=== PATIENT | female | born 1965 | race Caucasian/White ===

== ENCOUNTER 2023-09-23 12:27 | Outpatient (CLI) | payer OTHER, SELFPAY ==
--- OUTSIDE RECORDS SUMMARY | 2023-09-28 03:10 | XMS_ITS | Data Portability ---
Author Name Unknown Address [address] [place] [id number] Phone [phone] Organization [facility] [place], [id number] Address [address] [place] [phone] Assessment No assessment recorded. Plan of Treatment Reminders Order Date Submit Date Provider Last Modified By Organization Details Last Modified Time Details Appointments None recorded. Lab Pap test, slide(s), cervical [address], [address], [place], [address], 08:18:53 Referral None recorded. Procedures None recorded. Surgeries None recorded. Imaging None recorded. Medication Orders phentermine 37.5 mg tablet 2021 [id number], [address] [place], [address], 17:53:43 triamcinolo ne acetonide 0.1 % topical cream 2021 [id number], [address] [place], [address], 17:53:40 terconazole 0.8 % vaginal cream 2021 [id number], [address] [place], [address], 17:53:41 Patient TargetsNo targets recorded. Patient Instructions Encounter Date Encounter Id Patient Instructions Last Modified By Organization Details Last Modified Time 06/04/2022 [id number] handling fee* Not available 1 17:10:17 RTC in 1 year fo r annual exam. Sent scripts to treat rash on inner thighs. Will start Phentermine for weight. Pt will also discuss GLP-1 Meds with her Vending Route Servicer. Sent PAP, HPV. Will call pt with results. Pt had labs in October 2021 with PCP that were all WNL's. Last mammogram was normal in Aug 2021. Continue routine screening mammograms. She has not had a colonoscopy. Advised to schedule a routine screening colonoscopy. Advised to always wear seatbelt. Recommended monthly breast checks. Pt's paternal aunt had breast cancer in her 60's. Denies FmHx of ovarian, uterine, cervical or colon cancers. She does have a family history of Alzheimer's in her dad's family. All questions answered. [email or web address] Not available 06/04/2022 17:53:12 Reason for Referral None Reported. Results Created Date Observation Date Name Description Value Unit Range Abnormal Flag LastModifiedBy Organization Detail LastModifiedTime 06/04/20 22 06/04/2022 HPV HIGH RISK TYPES DNA CERVI DENISE other HR HPV negati ve negati ve Not Available [address], [place], [address], 06/10/2022 08:18:23 06/04/20 22 06/04/2022 HPV HIGH RISK TYPES DNA CERVI DENISE HPV16 DNA negati ve negati ve Not Available [address], [place], [address], 06/10/2022 08:18:23 06/04/20 22 06/04/2022 HPV HIGH RISK TYPES DNA CERVI DENISE HPV18 DNA negati ve negati ve Not Available [address], [place], [address], 06/10/2022 08:18:23 06/04/20 22 06/04/2022 HPV HIGH RISK TYPES DNA CERVI DENISE final diagnosis see note below Not Available [address], [place], [address], 06/10/2022 08:18:23 06/04/20 22 06/04/2022 GYNEC OLOGI C CYTOL OGY (PAP SMEAR ) gynecologic cytology see result s below Not Available [address], [place], [address], 06/10/2022 08:18:53 08/08/20 20 08/01/2020 MAMMO , scree madeline, bilat eral No observ ation record ed. [email or web address] Not Available 08/09/2020 12:21:11 Result Notes None recorded. Problems Name Status Onset Date Resolution Date Notes Provider Name and Address Organization Details Recorded Time Kidney stone Active Beti Mellissa(TERM) null, [place] [facility] [place] 06/04/2022 14:46:17 Disorder of thyroid gland Active Beti Mellissa(TERM) [place], [place] [facility] [place] [employer] 06/04/2022 14:46:45 Problem Notes None recorded. Procedures Surgical History Date Name Laterality Status Provider Name and Address Organization Details Recorded Time 2 Date of Last Mammogram completed Beti Mellissa(TERM) [place], [place] [facility] [place] [facility] 06/04/2022 14:47:48 9 Date of Last Pap Smear completed Beti Mellissa(TERM) [place], [place] [facility] [facility] 06/01/2022 16:22:12 ligation of bilateral fallopian tubes completed Not Available [facility] 04/04/2020 05:09:44 hernia repair completed Not Available [facility] 04/04/2020 05:09:45 Imaging Results Imaging Date Name Status LastModified by Organiz ation Details LastModified Time 08/01/2020 MAMMO, screening, bilateral completed [email or web address] Information not available 08/09/2020 12:21:11 Procedure Notes None recorded. Medical Equipment None Reported. Allergies Allergen ID Allergen Name Allergen Category Reaction Reaction Severity Criticality Documentation Date Start Date Code Code System Note Provider Name and Address Organization Details Recorded Time 79228 Medicinal product containin g penicilli n and acting as antibacte rial agent (product) medicatio n Not available Not available Not available 04/04/2020 28704 05 SNOMED Not Available [facility] 0 05:13:27 Medications Name Sig Start Date Stop Date Status Note LastModified by Organization Details LastModified Time terconazole 0.8 % vaginal cream Apply topically to affected area twice daily for 3 days or until rash resolves. active Not Available Not Available No t Available phentermine 37.5 mg tablet Take 1 tablet by oral route once daily 1-2 hours before or after breakfast . active Not Available Not Available No t Available triamcinolo ne acetonide 0.1 % topical cream APPLY A THIN LAYER TO THE AFFECTED AREA(S) BY TOPICAL ROUTE 2 TIMES PER DAY active Not Available Not Available No t Available tamsulosin 0.4 mg capsule take 1 capsule by mouth daily 06/04 completed Not Available Not Available Not Available Multi Vitamin active Not Available Not Available Not Available Flowflex COVID-19 Antigen Home Test kit use to test for COVID infection 06/04 completed Not Available Not Available Not Available Vitals Date Recorded Body weight Body mass index (BMI) Body height Heart rate Systolic blood pressure Diastolic blood pressure Provider Name and Address Organization Details Last Updated DateTime 2 40081.2 6 g 30.8 kg/m2 170.18 cm 82 /min 150 mm[Hg] 94 mm[Hg] Beti Parkinsonua(TERM ) [facility], [place] [facility] [place] 2 14:52:01 Date Recorded Body weight Body height Body mass index (BMI) Systolic blood pressure Diastolic blood pressure Provider Name and Address Organization Details Last Updated DateTime 07/18/2019 39530.77 319 g 172.8216 cm 28.43 kg/m2 150 mm[Hg] 92 mm[Hg] Not Available [facility] 0 06:34:52 Date Recorded Body mass index (BMI) Body weight Body height Systolic blood pressure Diastolic blood pressure Provider Name and Address Organization Details Last Updated DateTime 08/28/2011 29.19 kg/m2 38195.73 504 g 172.8216 cm 130 mm[Hg] 82 mm[Hg] Not Available [facility] 0 06:34:52 Social History Question Answer Notes LastModified by Organization Details LastModified Time Tobacco Smoking Status Former Smoker Tobacco *Status: Former Not Available [facility] 04/08/2020 11:34:45 Do You Have An Advance Directive? No Does Not Have A Health Directive Information not available 04/08/2020 What Is Your Level Of Alcohol Consumption? Occasional Wine Information not available 06/04/2022 Is Blood Transfusion Acceptable In An Emergency? Yes Information not available 06/01/2022 What Is Your Level Of Caffeine Consumption? None Information not available 06/04/2022 Are You Currently Employed? Yes Information not available 06/01/2022 What Type Of Diet Are You Following? 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 No Information not available 06/01/2022 Marital Status Informati on not available 04/08/2020 What Was The Date Of Your Most Recent Tobacco Screening? 06/04/2022 Information not available 06/01/2022 Performs Monthly Self-breast Exam? No Does Not Perform Monthly Breast Exams Information not available 04/08/2020 What Is Your Relationship Status? Information not available 06/01/2022 Are You Sexually Active? Yes Sexually Active Information not available 04/08/2020 Are You Currently In School? No Information not available 06/01/2022 Do You Or Have You Ever Used Any Other Forms Of Tobacco Or Nicotine? No Information not available 06/01/2022 Sex: Female Functional Status Question Answer Note LastModified by Organization D etails LastModified Time What is your exercise level? Moderate Information not available 06/04/2022 Mental Status None recorded. Family History Relationship Description Onset Age of this Age Resolved Age Notes Mother Malignant tumor of thyroid gland Father Carcinoma of prostate Father Alzheimer's disease Paternal Aunt Malignant tumor of breast Medical History No medical history recorded. Gynecological History Statement/Question Response History of Endometriosis N History of Abnormal PAP N History of Recurrent Ovarian Cysts N HPV Test Negative Date of Last Mammogram 08/30/2021 Date of LMP Menstrual Cycle Length (days) 30 Date of Last Diabetes Screening 08/30/19 22 History of Infertility N Date of last bone density Sexually Active Y Age at Menarche: 17 Date of Last Colonoscopy History of Sexually Transmitted Infectio n N HPV Vaccination Not Applicable Current Control Method Menopause History of Gestational Diabetes N History of Fibroids N Date of Last Pap Smear 07/18/2019 Date of Last Cholesterol Screening 08/30 Obstetrics History GPAL:G 3 P 3 0 0 3 Type Value Multiple Births 0 Full Term 3 Induced 0 Spontaneous 0 Premature 0 Living 3 Ectopics 0 Total 3 Immunizations Vaccine Type Date Status Provider Name and Address Organization Details Recorded Time COVID-19, mRNA, LNP-S, PF, 100 mcg/0.5mL dose or 50 mcg/0.25mL dose 08/30/2020 completed Beti Malloy(TERM) null, [place] - [facility] [place] 06/04/2022 14:45:57 Past Encounters Encounter ID Performer Location Encounter Start Date Encounter Closed Date Diagnosis/Indication [id number] ADAN TORRES PA-C [id number] [facility] [address] [facility] [place] [phone] 06/04/2022 14:28:40 06/05/2022 11:01:45 Gynecologic examination Obesity Localized eruption of skin Health Concerns Section Related Observation LastModified by Organization Detai ls LastModified Time None Recorded Concern Status LastModified by Organization Details LastModified Time None Recorded Advance Directives Directive N: Does Not have a Health Di rective Payers Encounter Date Sequence Insurance Name Policy Number Policy Delarosa Covered Member ID Delarosa Member ID Guarantor Name 06/04/2022 1 [facility] Alexis King [id number] Charo King Notes Date Note Type Note Provider Name and Address Organization Details Recorded Time 06/04/2022 text/html HPI Notes: Zehraua chloé Postmenopausal ([facility]) Reported by patient. Patient Relationship To Practice: established patient Current Medical History: no active medical problems; no recent surgeries or hospitalizations; Hx of kidney stone in 2019. 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 She had her parathyroid removed in October 2020. Her calcium levels have since returned to normal. Relevant Family History: family history of breast cancer; no family history of ovarian cancer; no family history of uterine cancer; no family history of colon cancer; no family history of blood clots/DVT Menopausal Symptoms: not present; feels she is coping well; Some irritability and insomnia but overall feels she is coping well HRT: not currently on HRT Vaginal Bleeding: no Sexually Active: Yes: spouse STI Screen: declines Health/Prevention: Exercise: yes; Breast Self Exam: yes; Seat Belt Use: yes; Tobacco Use: no; Safe at home: yes Mammogram: up-to-date; August 2021 - [place] Pap Smear +/- HPV Cotesting: due; 07/18/2019 [place] Thyroid/Lipid Screening: up-to-date; 2021 Colonoscopy: due Bone Density Study: not applicable Patient has: Primary Care Physician: yes 56 YO Pt presents to clinic today for her annual exam. Her LMP was 2 years ago. She is very concerned about weight gain since reaching menopause. She has gained 15 lbs in the last 6 months. ADAN TORRES PA-C [id number] [facility],[address], [place], [phone], [place] [facility] [employer] 06/04/2022 17:56:09 OBGyn Episode Ob Episode Information Episode Created Date Number of Fetuses Patient Bloodtype Patient rh Status Prepregnancy Weight lbs Domestic Partner Domestic Partner Phone Father Name Molder Bench Status 06/01/20 22 1 CLOSED Fetus Data First Name Last Name Admitted to NICU Weight (g) Sex Living Outcome Pediatric Complications Fetus ID Race Codes Race Delivery Type M Full Term [id number] Tommy Calculation Initial Tommy Date Initial Exam Date Initial Exam Provider Initial Ultrasound Date Last Menstrual Period Date Ultra Sound Weeks Gestation 0 Eighteen To Twenty Week Tommy Update Ultra Sound Date Fundal Height At Umbil Quickening Date Ultra Sound Latest Weeks Gestation Final Tommy Confirmed By Final Tommy Confirmed Date Final Tommy Date Ultra Sound Latest Days Gestation 0 0 Menstrual History Last Menstrual Date Menses Monthly On Bcp Conception Prior Menses Frequency Hcg Plus Date Menarche Onset Age Delivery Information Delivery Date Delivery Type Labor Anesthesia Weeks Gestation Incision Type Labor Labor Length Hrs Delivered By Post Complications Tubal Sterilization Discharge Date Comments 1 Discharge Information Feeding Method Contraceptive Method Maternal HG B and HCT Levels Ob Episode Information Episode Created Date Number of Fetuses Patient Bloodtype Patient rh Status Prepregnancy Weight lbs Domestic Partner Domestic Partner Phone Father Name Molder Bench Status 06/01/20 22 1 CLOSED Fetus Data First Name Last Name Admitted to NICU Weight (g) Sex Living Outcome Pediatric Complications Fetus ID Race Codes Race Delivery Type M Full Term [id number] Tommy Calculation Initial Tommy Date Initial Exam Date Initial Exam Provider Initial Ultrasound Date Last Menstrual Period Date Ultra Sound Weeks Gestation 0 Eighteen To Twenty Week Tommy Update Ultra Sound Date Fundal Height At Umbil Quickening Date Ultra Sound Latest Weeks Gestation Final Tommy Confirmed By Final Tommy Confirmed Date Final Tommy Date Ultra Sound Latest Days Gestation 0 0 Menstrual History Last Menstrual Date Menses Monthly On Bcp Conception Prior Menses Frequency Hcg Plus Date Menarche Onset Age Delivery Information Delivery Date Delivery Type Labor Anesthesia Weeks Gestation Incision Type Labor Labor Length Hrs Delivered By Post Complications Tubal Sterilization Discharge Date Comments 8 Discharge Information Feeding Method Contraceptive Method Maternal HG B and HCT Levels Ob Episode Information Episode Created Date Number of Fetuses Patient Bloodtype Patient rh Status Prepregnancy Weight lbs Domestic Partner Domestic Partner Phone Father Name Molder Bench Status 06/01/20 22 1 CLOSED Fetus Data First Name Last Name Admitted to NICU Weight (g) Sex Living Outcome Pediatric Complications Fetus ID Race Codes Race Delivery Type F Full Term [id number] Tommy Calculation Initial Tommy Date Initial Exam Date Initial Exam Provider Initial Ultrasound Date Last Menstrual Period Date Ultra Sound Weeks Gestation 0 Eighteen To Twenty Week Tommy Update Ultra Sound Date Fundal Height At Umbil Quickening Date Ultra Sound Latest Weeks Gestation Final Tommy Confirmed By Final Tommy Confirmed Date Final Tommy Date Ultra Sound Latest Days Gestation 0 0 Menstrual History Last Menstrual Date Menses Monthly On Bcp Conception Prior Menses Frequency Hcg Plus Date Menarche Onset Age Delivery Information Delivery Date Delivery Type Labor Anesthesia Weeks Gestation Incision Type Labor Labor Length Hrs Delivered By Post Complications Tubal Sterilization Discharge Date Comments 5 Discharge Information Feeding Method Contraceptive Method Maternal HG B and HCT Levels
--- OUTSIDE RECORDS SUMMARY | 2023-09-28 03:10 | XMS_ITS | Data Portability ---
Author Name Unknown Address [address] [place] [address] Phone [phone] Organization [facility], [facility] Address [address] [place] [address] Care Team Providers Care Mud Trucker Name Role Phone [facility] Primary Care Provider [phone] Assessment Encounter Date Assessment Date Assessment LastModified by Organization Details LastModified Time 04/17/2020 04/17/2020 A TOTAL OF 20-25 MINUTES SPENT ON THIS video TELEMEDICINE VISIT WITH REVIEW OF CHART, IMAGING, LABORATORY, AND GREATER THAN 50% OF TIME SPENT IN DIRECT CONVERSATION WITH PATIENT. [email or web address] Not available 04/17/2020 12:42:55 06/07/2020 06/07/2020 54 Y/O FEMALE, SEEN FOR RT FLANK PAIN, IRRITATIVE VOIDING SX.S RECENT LEFT ESWL WITH DR ALONZO. KUB - LEFT NEG. 2 -3MM RT DISTAL CALCIFICATIONS. PAIN IMPROVED. PLAN - INCREASED FLUIDS, STRAIN URINE, FLOMAX. FOLLOWUP WITH DR ALONZO 1-2 WKS Not available 06/07/2020 12:08:00 Plan of Treatment Reminders Order Date Submit Date Provider Last Modified By Organization Details Last Modified Time Details Appointments CT SCAN 30 2023 11:00A M CT Not available Not available Not available Lab urinal ysis, dipsti ck 2023 024 [email or web address] [facility], [address], [place], [address], 09/27/2023 13:55:23 urinal ysis, dipsti ck 2020 KENZIE Not available 08/08/2021 14:31:57 urinal ysis, dipsti ck 2019 ssamb Not available 06/07/2020 10:54:43 PTH (parat hyroid hormon e), intact , serum or plasma 2019 [facility], [address] [place], [address], 04/29/2020 09:41:35 BMP + ionize d calciu m, serum or plasma 2019 [facility], [address] [place], [address], 04/19/2020 06:13:08 Referral None record ed. Procedures None record ed. Surgeries extra corpor eal shockw ave lithot ripsy (SURG) 2019 [facility], [address] , [place], [address], 05/27/2020 11:53:[address], abdome n + pelvis , w/o contra st 2023 024 [email or web address] [facility] , [address] [place], [address], 09/27/2023 14:57:59 CT, abdome n + pelvis , w/o contra st 2020 [email or web address] Not available 08/08/2021 09:14:38 CT, abdome n + pelvis , w/o contra st 2019 KENZIE Not available 04/25/2020 13:17:06 XR, kidney + ureter + bladde r 2019 KENZIE Not available 04/25/2020 13:09:00 Medication Orders tamsul osin 0.4 mg capsul e [address] [id number], [address] [place], [address], 06/07/2020 12:03:51 Patient TargetsNo targets recorded. Patient Instructions Encounter Date Encounter Id Patient Instructions Last Modified By Organization Details Last Modified Time 07/01/2020 [id number] Patient status post ESWL and has passed the stone fragments. She is going to be seen in endocrinology in follow-up for PTH elevation [email or web address] Not available 07/01/2020 14:40:31 06/07/2020 [id number] STONE PREVENTION Not availabl e 06/07/2020 12:08:08 Reason for Referral None Reported. Results Created Date Observation Date Name Description Value Unit Range Abnormal Flag LastModifiedBy Organization Detail LastModifiedTime 06/07/2020 urina lysis , dipst ick Color-Status Yellow Not Available [facility] [address], [place], [address], 06/07/2020 10:54:27 06/07/2020 urina lysis , dipst ick Clarity-Stat us Clear Not Available [facility] [address], [place], [address], 06/07/2020 10:54:27 06/07/2020 urina lysis , dipst ick Blood-Status Large Not Available [facility] [address], [place], [address], 06/07/2020 10:54:27 08/08/20 21 08/08/2021 urina lysis , dipst ick Blood-Status Trace Not Available [facility] [address], [place], [address], 08/07/2021 15:38:18 09/27/19 24 09/27/2023 urina lysis , dipst ick Color-Status Yellow Not Available [facility] [address], [place], [address], 09/27/2023 13:54:29 09/27/19 24 09/27/2023 urina lysis , dipst ick Clarity-Stat us Clear Not Available [facility] [address], [place], [address], 09/27/2023 13:54:29 09/27/19 24 09/27/2023 urina lysis , dipst ick Glucose-Stat us Negati ve Not Available [facility] [address], [place], [address], 09/27/2023 13:54:29 09/27/19 24 09/27/2023 urina lysis , dipst ick Bilirubin-St atus Negati ve Not Available [facility] [address], [place], [address], 09/27/2023 13:54:29 09/27/19 24 09/27/2023 urina lysis , dipst ick Ketones-Stat us Negati ve Not Available [facility] [address], [place], [address], 09/27/2023 13:54:29 09/27/19 24 09/27/2023 urina lysis , dipst ick Sp Miami-Stat us 1.025 Not Available [facility] [address], [place], [address], 09/27/2023 13:54:29 09/27/19 24 09/27/2023 urina lysis , dipst ick pH-Status 6.0 Not Available [facility] [address], [place], [address], 09/27/2023 13:54:29 09/27/19 24 09/27/2023 urina lysis , dipst ick Urobilinogen -Status 0.2 Not Available [facility] [address], [place], [address], 09/27/2023 13:54:29 09/27/19 24 09/27/2023 urina lysis , dipst ick Nitrates-Sta tus negati ve Not Available [facility] [address], [place], [address], 09/27/2023 13:54:29 09/27/19 24 09/27/2023 urina lysis , dipst ick Blood-Status Large Not Available [facility] [address], [place], [address], 09/27/2023 13:54:29 09/27/19 24 09/27/2023 urina lysis , dipst ick Leuko-Status Negati ve Not Available [facility] [address], [place], [address], 09/27/2023 13:54:29 09/27/19 24 09/27/2023 urina lysis , dipst ick Specimen Type Voided Not Available [facility] [address], [place], [address], 09/27/2023 13:54:29 04/25/20 20 04/24/2020 XR, kidne y + urete r + bladd er No observ ation record ed. [email or web address] Not Available 04/28/2020 15:52:38 04/25/20 20 04/24/2020 CT, abdom en + pelvi s, w/o contr ast No observ ation record ed. [email or web address] Not Available 04/28/2020 15:52:39 06/12/20 20 06/07/2020 XR, kidne y + urete r + bladd er No observ ation record ed. KENZIE [facility] [address], [place], [address], 06/13/2020 08:25:40 08/15/20 21 08/14/2021 CT, abdom en + pelvi s, w/o contr ast No observ ation record ed. [email or web address] [facility] [address], [place], [address], 08/18/2021 11:05:05 Result Notes None recorded. Procedures Surgical History Date Name Laterality Status Provider Name and Address Organization Details Recorded Time 05/17/20 20 EXTRA CORPOREAL SHOCKWAVE LITHOTRIPSY (SURG) completed Jensen Alonzo MD [address] [facility],[address], [place], [address], [facility] 05/27/2020 13:46:45 05/17/20 20 EXTRA CORPOREAL SHOCKWAVE LITHOTRIPSY (SURG) completed Not Available [facility] 05/28/2020 14:22:40 Imaging Results Imaging Date Name Status LastModified by Organiz ation Details LastModified Time 04/24/2020 XR, kidney + ureter + bladder completed Information not available 04/28/2020 15:52:38 04/24/2020 CT, abdomen + pelvis, w/o contrast completed Information not available 04/28/2020 15:52:39 06/07/2020 XR, kidney + ureter + bladder completed KENZIE [facility] [address], [place], [address], 06/13/2020 08:25:40 08/14/2021 CT, abdomen + pelvis, w/o contrast completed [email or web address] [facility] [address], [place], [address], 08/18/2021 11:05:05 Procedure Notes None recorded. Medical Equipment None Reported. Allergies Allergen ID Allergen Name Allergen Category Reaction Reaction Severity Criticality Documentation Date Start Date Code Code System Note Provider Name and Address Organization Details Recorded Time 190117 Medicinal product containin g penicilli n and acting as antibacte rial agent (product) medicatio n hives Not available Not available 04/17/2020 40351 05 SNOMED Edgardo calderon [facility] 0 10:48:15 Medications Name Sig Start Date Stop Date Status Note LastModified by Organization Details LastModified Time sumatriptan 100 mg tablet 08/07 completed Not Available Not Available Not Available hydrocodone 5 mg-acetamin ophen 325 mg tablet 04/17 completed Not Available Not Available Not Available prednisone 20 mg tablet 08/07 completed Not Available Not Available Not Available prochlorper azine maleate 10 mg tablet 08/07 completed Not Available Not Available Not Available sulfamethox azole 800 mg-trimetho prim 160 mg tablet 1 tablet orally twice a day for 7 days* active Not Available Not Available No t Available oxycodone-a cetaminophe n 5 mg-325 mg tablet 08/07 completed Not Available Not Available Not Available tamsulosin 0.4 mg capsule 0.4 mg ( 1 capsule ) orally every day for 7 days* active Not Available Not Available No t Available ibuprofen 600 mg tablet Take 1 tablet every 6 hours by oral route. active Not Available Not Available No t Available cholecalcif yesenia (vitamin D3) 1,250 mcg (50,000 unit) capsule active Not Available Not Available Not Available Fluzone Quad 60 mcg (15 mcg x 4)/0.5 mL intramuscul ar susp. 04/17 completed Not Available Not Available Not Available Fluzone Quad (PF) 60 mcg (15 mcg x 4)/0.5 mL IM syringe 08/07 completed Not Available Not Available Not Available Flowflex COVID-19 Antigen Home Test kit use to test for COVID infection active Not Available Not Available No t Available Vitals Date Recorded Body height Body mass index (BMI) Body weight Provider Name and Address Organization Details Last Updated DateTime 06/07/2020 172.72 cm 27.4 kg/m2 30616.63 g Artur Ventura MD [address] [place] [address], [address] 06/07/2020 10:45:04 Date Recorded Body height Body mass index (BMI) Body weight Provider Name and Address Organization Details Last Updated DateTime 07/01/2020 172.72 cm 27.4 kg/m2 68558.63 g Alexis calderon [facility] 07/01/2020 14:07:01 Date Recorded Body height Body mass index (BMI) Body weight Provider Name and Address Organization Details Last Updated DateTime 09/27/2023 172.72 cm 27.4 kg/m2 98299.63 g ANASTACIO SEALS PA-C [address] [place] [address], [address] 09/27/2023 13:55:51 Date Recorded Body height Body mass index (BMI) Body weight Provider Name and Address Organization Details Last Updated DateTime 04/17/2020 172.72 cm 28.1 kg/m2 77115.59 g Edgardo Quiroga [facility] 04/17/2020 10:47:31 Date Recorded Body height Body mass index (BMI) Body weight Provider Name and Address Organization Details Last Updated DateTime 08/07/2021 172.72 cm 27.4 kg/m2 33226.63 g Elizabeth Diaz [facility] 08/07/2021 15:37:41 Date Recorded Body height Body mass index (BMI) Body weight Provider Name and Address Organization Details Last Updated DateTime 04/26/2020 172.72 cm 27.4 kg/m2 15335.63 g Alexis Jassoshannan [facility] 04/26/2020 09:12:07 Social History Question Answer Notes LastModified by Organizat ion Details LastModified Time Tobacco Smoking Status Former Smoker PT QUIT TEN YEARS AGO Edgardo Quiroga [facility] 04/17/2020 10:51:46 What Is Your Level Of Alcohol Consumption? Moderate Information not available 07/01/2020 What Is Your Level Of Caffeine Consumption? Occasional Information not available 07/01/2020 What Was The Date Of Your Most Recent Tobacco Screening? 09/27/2023 [email or web address] Information not available 09/27/2023 Sex: Female Functional Status None recorded. Mental Status None recorded. Family History Relationship Description Onset Age of this Age Resolved Age Notes Maternal Grandmother Family history of diabetes mellitus Father Family history of cardiac disorder PACEMAKER Father Family history of prostate cancer Mother Family history of cancer THYROID Medical History Condition Response Other N High Blood Pressure N Kidney Stones N Depression N Sexually Transmitted Infection N Cancer N Bleeding Disorder N Lung Disease N GERD/Acid Reflux N High Cholesterol N Diabetes N Heart Disease N Gynecological History Statement/Question Response Leaking urine with intercourse N Heavy periods N Sexually Active? Y Pain with intercourse N Obstetrics History GPAL:G 0 P 0 0 0 0 Immunizations Vaccine Type Date Status Provider Name and Address Organization Details Recorded Time influenza, injectable, quadrivalent 06/19/2018 completed ANASTACIO SEALS PA-C [address] [facility],[address], [place], [address], [facility] 09/27/2023 13:56:20 influenza, injectable, quadrivalent 06/28/2021 completed ANASTACIO SEALS PA-C [address] [facility],[address], [place], [address], [facility] 09/27/2023 13:56:20 influenza, injectable, quadrivalent 07/04/2017 completed ANASTACIO SEALS PA-C [address] [place] [address],[address], [place], [address], [facility] 09/27/2023 13:56:20 influenza, injectable, quadrivalent 07/12/2016 completed ANASTACIO SEALS PA-C [address] [place] [address],[address], [place], [address], [facility] 09/27/2023 13:56:20 COVID-19, mRNA, LNP-S, PF, 100 mcg/0.5mL dose or 50 mcg/0.25mL dose 11/15/2020 completed ANASTACIO SEALS PA-C [address] [place] [address],[address], [place], [address], [facility] 09/27/2023 13:56:20 COVID-19, mRNA, LNP-S, PF, 100 mcg/0.5mL dose or 50 mcg/0.25mL dose 12/13/2020 completed ANASTACIO SEALS PA-C [address] [place] [address],[address], [place], [address], [facility] 09/27/2023 13:56:20 influenza, injectable, quadrivalent, preservative free 05/09/2020 completed ANASTACIO SEALS PA-C [address] [place] [address],[address], [place], [address], [facility] 09/27/2023 13:56:20 influenza, injectable, quadrivalent 06/07/2019 completed SHAN REILLY-C [address] [place] [address],[address], [place], [address], [facility] 09/27/2023 13:56:20 Past Encounters Encounter ID Performer Location Encounter Start Date Encounter Closed Date Diagnosis/Indication [id number] Jensen Alonzo MD [facility] [address] [place] [address] 04/17/2020 10:45:34 04/17/2020 13:40:32 Left flank pain Calculus of kidney and ureter [id number] Jensen Alonzo MD [facility] [address] [place] [address] 04/26/2020 09:07:02 04/26/2020 14:13:09 Hypercalcemia Hydronephrosis due to calculus of kidney and ureter [id number] Artur Ventura MD [facility] [address] [place] [address] 06/07/2020 09:42:01 06/07/2020 12:17:21 Kidney stone [id number] Jensen Alonzo MD [facility] [address] [place] [address] 07/01/2020 13:47:15 07/01/2020 15:50:46 Calculus of kidney and ureter [id number] Baldo De Jesus MD [facility] [address] [place] [address] 08/07/2021 15:35:52 08/13/2021 14:46:23 Kidney stone [id number] ANASTACIO SEALS PA-C [facility] [address] [place] [address] 09/27/2023 13:44:53 09/27/2023 14:57:59 Kidney stone Health Concerns Section Related Observation LastModified by Organization Detai ls LastModified Time None Recorded Concern Status LastModified by Organization Details LastModified Time None Recorded Advance Directives Directive None Recorded Payers Encounter Date Sequence Insurance Name Policy Number Policy Delarosa Covered Member ID Delarosa Member ID Guarantor Name 09/27/[address] [facility] [id number] Alexis Ackermanrieliseo [id number] Charo Ackermanrieliseo 08/07/[address] [facility] [id number] Alexis Ackermanrill [id number] Charo Ackermanrill 07/01/[address] [facility] [id number] Alexis Ackermanrill [id number] Charo Ackermanrill 06/07/[address] [facility] [id number] Alexis Ackermanrill [id number] Charo Ackermanrill 04/26/[address] [facility] [id number] Alexis Ackermanrill [id number] Charo Ackermanrill 04/17/[address] [facility] [id number] Alexis Ackermanrill [id number] Charo Ackermanrieliseo Notes Date Note Type Note Provider Name and Address Organization Details Recorded Time 0 text/html HPI Notes: 54-year-old woman referred for video telemedicine consultation. Overall healthy. Experienced left flank pain early March. Over the next few days this progressed and so it was quite painful and she was seen in the [place] [facility]. She was then referred to the [place] emergency room and a CT scan performed April 09 apparently showed a 7 mm stone somewhere within the ureter causing obstruction. Today no films are actual film report are available but the patient states that the emergency room physician told her it was in the tube that drains the kidney. She currently has intermittent flank pain that is well controlled with Advil. She has no fever and no chills. She is unsure of any blood work was obtained. She has no prior history of stone disease. Interestingly, in the fall 2018 she was placed on vitamin D and calcium supplementation. This visit was conducted using [employer] video conferencing technology due to the COVID-19 crisis. Prior to conducting our video e-health visit, the patient was apprised of the risks, benefits and alternatives to video visits including but not limited to inadequate image resolution, interrupted video visits due to technological limitations, delays in medical evaluation and treatment due to deficiencies or failures of equipment, failure of security protocols resulting in a breach of privacy of personal medical information and a lack of access to complete medical records resulting in not fully informed decisions. Also, because of the COVID-19 pandemic, it was not possible for the patient to sign the privacy regulations, HIPAA release and assignment of benefits forms. The patient was given the opportunity to ask questions about these policies and gave verbal acknowledgement and approval of these policies as well as to hold this meeting using video technology. Jensen Alonzo MD [address] [place] [address],[address] [place] [address], [address], [facility] 04/17/2020 12:49:44 0 text/html HPI Notes: 54-year-old woman scheduled for follow-up to review recent laboratory and imaging. CT scan shows bilateral nonobstructing renal calculi and a 6 to 7 mm proximal left ureteral calculus with proximal ureteral obstruction. Patient's ionized calcium is elevated. She is asymptomatic Jensen Alonzo MD [address] [place] [address],[address], [place], [address], [facility] 04/26/2020 13:57:50 0 text/html HPI Notes: 54-year-old woman scheduled for follow-up for left ESWL on 05/17/[address] Alonzo.SEEN TODAY FOR RT FLANK PAIN AND NOW INCREASED FREQ AND URGENCY. SEEN AT URGENT CARE AND U/A NEG FOR UTI. PAIN HAS IMPROVED, BUT VOIDING SX.S PERSIST. NO PAIN ON LEFT. KUB -LEFT NEG. RT 2 3MM CALCIFICATION IN SUSPECTED RT DISTAL URETER. Artur Ventura MD [address] [place] [address],[address], [place], [address], [facility] 06/07/2020 12:08:44 0 text/html HPI Notes: 55-year-old woman scheduled for follow-up for left ESWL on 05/17/20. She is no longer having pain and she has passed the 2 small stones that were engaged in the right ureterovesical junction. KUB today shows no residual calculi on the left or right. She is scheduled to follow-up with the data deliverables manager regarding her elevated PTH. Jensen Alonzo MD [address] [place] [address],[address], [place], [address], [facility] 07/01/2020 14:40:35 1 text/html HPI Notes: 08/07/21: She is a patient of Dr. Alonzo added to my schedule today for about a 2-week history of left flank pain. She is also noticed some dark urine. No fevers or chills. Urinalysis today shows large blood, otherwise negative. She has had at least 3 stones in the past and was diagnosed with hyperparathyroidism. She had parathyroidectomy in October 2020. Recent serum calcium at her primary care office was normal. No recent imaging. Prior CT scan in March 2020 shows multiple bilateral renal stones. Baldo De Jesus MD [address] [facility],[address], [place], [address], [facility] 08/07/2021 15:58:58 text/html HPI Notes: 58 yo F with h/o stones (has previously followed with Dr De Jesus, Dr Alonzo) here with concern that she could be passing another stone. H/o ESWL in 2019 (Sudarshan). She has been having left sided flank/abdominal pain for a week. Had one day of gross hematuria one week ago. Denies dysuria, fevers. Was seen in urgent care over the weekend and UA was clear other than blood. She was started on Flomax and Bactrim. UCx grew low level of E. coli (per patient - urgent care told her not a true UTI). Most recent imaging Jul 2021 showing multiple 2mm left renal stones. She reports having passed 3 stones in the past; was then dx with hyperparathyroidism and had parathyroidectomy in October 2020. UA: large blood ANASTACIO SEALS PA-C [address] [facility],[address], [place], [address], [facility] 09/27/2023 14:55:44 OBGyn Episode No OBEpisode recorded.
--- OUTSIDE RECORDS SUMMARY | 2023-09-28 03:10 | XMS_ITS | Continuity of Care Document ---
Author Name Unknown Address [address] [place] [address] Phone [phone] Organization [facility] Address [address] [place] [address] Care Team Providers Care Warp Drawer Name Role Phone [facility] Primary Care Provider [phone] Assessment No assessment recorded. Plan of Treatment Reminders Order Date Submit Date Provider Last Modified By Organization Details Last Modified Time Details Appointments CT SCAN 30 2023 11:00A M CT Not available Not available Not available Lab urinalys is, dipstick 2023 024 [email or web address] [facility], [address], [place], [address], 09/27/2023 13:55:23 Referral None recorded . Procedures None recorded . Surgeries None recorded . Imaging CT, abdomen + pelvis, w/o contrast 2023 024 [email or web address] [facility] , [address], [place], [address], 09/27/2023 14:57:59 Medication Orders None recorded . Patient TargetsNo targets recorded. Patient InstructionsNo instructions recorded. Reason for Referral None Reported. Results Created Date Observation Date Name Description Value Unit Range Abnormal Flag LastModifiedBy Organization Detail LastModifiedTime 09/27/19 24 09/27/2023 urina lysis , dipst ick Color-Status Yellow Not Available [facility] [address], [place], [address], 09/27/2023 13:54:29 09/27/19 24 09/27/2023 urina lysis , dipst ick Clarity-Stat us Clear Not Available [facility] [address], [place], [address], 09/27/2023 13:54:29 09/27/19 24 09/27/2023 urina lysis , dipst ick Glucose-Stat us Negati ve Not Available [facility] [address], [place], [address], 09/27/2023 13:54:29 09/27/19 24 09/27/2023 urina lysis , dipst ick Bilirubin-St atus Negati ve Not Available [facility] [address], [place], [address], 09/27/2023 13:54:29 09/27/19 24 09/27/2023 urina lysis , dipst ick Ketones-Stat us Negati ve Not Available [facility] [address], [place], [address], 09/27/2023 13:54:29 09/27/19 24 09/27/2023 urina lysis , dipst ick Sp [place]-Stat us 1.025 Not Available [facility] [address], [place], [address], 09/27/2023 13:54:29 09/27/19 24 09/27/2023 urina lysis , dipst ick pH-Status 6.0 Not Available [facility] [address], [place], [address], 09/27/2023 13:54:29 09/27/19 24 09/27/2023 urina lysis , dipst ick Urobilinogen -Status 0.2 Not Available [facility] [address], [place], [address], 09/27/2023 13:54:29 09/27/19 24 09/27/2023 urina lysis , dipst ick Nitrates-Sta tus negati ve Not Available [facility] [address], [place], [address], 09/27/2023 13:54:29 09/27/19 24 09/27/2023 urina lysis , dipst ick Blood-Status Large Not Available [facility] [address], [place], [address], 09/27/2023 13:54:29 09/27/19 24 09/27/2023 urina lysis , dipst ick Leuko-Status Negati ve Not Available [facility] [address], [place], [address], 09/27/2023 13:54:29 09/27/19 24 09/27/2023 urina lysis , dipst ick Specimen Type Voided Not Available [facility] [address], [place], [address], 09/27/2023 13:54:29 Result Notes None recorded. Procedures Surgical History Date Name Laterality Status Provider Name and Address Organization Details Recorded Time 05/17/20 20 EXTRA CORPOREAL SHOCKWAVE LITHOTRIPSY (SURG) completed Jensen Heaton MD [address] [place] [address],[address], [place], [address], [facility] 05/27/2020 13:46:45 05/17/20 20 EXTRA CORPOREAL SHOCKWAVE LITHOTRIPSY (SURG) completed Not Available [facility] 05/28/2020 14:22:40 Imaging Results None recorded. Procedure Notes None recorded. Medical Equipment None Reported. Allergies Allergen ID Allergen Name Allergen Category Reaction Reaction Severity Criticality Documentation Date Start Date Code Code System Note Provider Name and Address Organization Details Recorded Time 842509 Medicinal product containin g penicilli n and acting as antibacte rial agent (product) medicatio n hives Not available Not available 04/17/2020 11452 05 SNOMED Edgardo calderon [facility] 10:48:15 Medications Name Sig Start Date Stop [...] Updated DateTime 09/27/2023 172.72 cm 27.4 kg/m2 92667.63 g ANASTACIO SEALS PA-C [address] [place] [address],[facility] [address], [place], [address], [facility] 09/27/2023 13:55:51 Social History Question Answer Notes LastModified by Organizat ion Details LastModified Time Tobacco Smoking Status Former Smoker PT QUIT TEN YEARS AGO NATALIE Valdez [facility] 04/17/2020 10:51:46 What Is Your Level Of [...] Details Recorded Time influenza, injectable, quadrivalent 06/19/2018 riky SEALS PA-C [address] [place] [address],[address], [address], [facility] 09/27/2023 13:56:20 influenza, injectable, quadrivalent 06/28/2021 riky SEALS PA-C [address] [place] [address],[address], [address], [facility] 09/27/2023 13:56:20 influenza, injectable, quadrivalent 07/04/2017 completed ANASTACIO SEALS PA-C [address] [place] [address],[address], [address], [facility] 09/27/2023 13:56:20 influenza, injectable, quadrivalent 07/12/2016 completed ANASTACIO SEALS PA-C [address] [place] [address],[address], [address], [facility] 09/27/2023 13:56:20 COVID-19, mRNA, LNP-S, PF, 100 mcg/0.5mL dose or 50 mcg/0.25mL dose 11/15/2020 completed ANASTACIO SEALS PA-C [address] [facility],[address] [place] [address], [address], [facility] 09/27/2023 13:56:20 COVID-19, mRNA, LNP-S, PF, 100 mcg/0.5mL dose or 50 mcg/0.25mL dose 12/13/2020 completed ANASTACIO SEALS PA-C [address] [place] [address],[address], [address], [facility] 09/27/2023 13:56:20 influenza, injectable, quadrivalent, preservative free 05/09/2020 completed ANASTACIO SEALS PA-C [address] [place] [address],[address], [address], [facility] 09/27/2023 13:56:20 influenza, injectable, quadrivalent 06/07/2019 completed ANASTACIO SEALS PA-C [address] [place] [address],[address], [address], [facility] 09/27/2023 13:56:20 Past Encounters Encounter ID Performer Location Encounter Start Date Encounter Closed Date Diagnosis/Indication [id number] ANASTACIO SEALS PA-C [facility] [address] [place] [address] 09/27/2023 13:44:53 09/27/2023 14:57:59 Kidney stone Health Concerns Section Related Observation LastModified by Organization Detai ls LastModified Time None Recorded Concern Status LastModified by Organization Details LastModified Time None Recorded Payers Encounter Date Sequence Insurance Name Policy Number Policy Delarosa Covered Member ID Delarosa Member ID Guarantor Name 09/27/2023 1 [facility] ([facility]) [id number] Alexis King [id number] Charo King Notes Date Note Type Note Provider Name and Address Organization Details Recorded Time 4 text/html HPI Notes: 58 yo F with h/o stones (has previously followed with Dr De Jesus, Dr Heaton) here with concern that she could be [...] 2020. UA: large blood ANASTACIO SEALS PA-C [address] [place] [address],[address], [place], [address], [facility] 09/27/2023 14:55:44 OBGyn Episode No OBEpisode recorded.
--- OUTSIDE RECORDS SUMMARY | 2023-09-28 03:11 | XMS_ITS | Referral Summary ---
Author Name Unknown Organization [place] Address [address] [place] [address] Care Team Providers Care Associate Professor Of Surgery Name Role Phone Sherin Munson MD Primary Care Provider +1- [phone] Allergies Active Allergy Reactions Criticality Noted Date Comments Penicillins Hives 10/13/2019 Mom told her she had as a child Medications Medication Sig Dispensed Refills Start Date End Date Status cholecalciferol (VITAMIN D3) 125 mcg (5000 units) capsule Take 125 mcg by mouth daily 0 Active prochlorperazine (COMPAZINE) 10 MG tabletIndications:Primary hyperparathyroidism (H24) Take 1 tablet (10 mg) by mouth every 6 hours as needed for nausea or vomiting 20 tablet 0 10/29/2020 Active calcium carbonate (OS-DENISE) 500 MG tabletIndications:Primary hyperparathyroidism (H24) Take 1 tablet (500 mg) by mouth 2 times daily 60 tablet 0 10/29/2020 Active Active Problems Problem Noted Date Diagnosed Date Primary hyperparathyroidism (H24) 09/22/2020 Overview: Added automatically from request for surgery [id number] Migraine Hypercalcemia Social History Tobacco Use Types Packs/Day Years Used Date Smoking Tobacco: Former Cigarettes 14 Q uit: 1999 Smokeless Tobacco: Never Tobacco Cessation:Counseling Given: Yes Adolescent Education Answer Date Record ed Getting School Help Needed Not on file 05/23 Sex and Gender Information Value Date Recorded Sex Assigned at Female 09/08/2020 3:28 PM SALES ENGAGEMENT MANAGER Gender Identity Female 09/08/2020 3:28 PM SALES ENGAGEMENT MANAGER Sexual Orientation Straight 09/08/2020 3: 28 PM SALES ENGAGEMENT MANAGER Last Filed Vital Signs Vital Sign Reading Time Taken Comments Blood Pressure 134/68 10/29/2020 2:13 PM SALES ENGAGEMENT MANAGER Pulse 81 10/29/2020 2:13 PM SALES ENGAGEMENT MANAGER Temperature 36.2 ??C (97.1 ??F) 10/29/2020 2:13 PM CS T Respiratory Rate 16 10/29/2020 2:13 PM SALES ENGAGEMENT MANAGER Oxygen Saturation 92% 10/29/2020 2:13 PM SALES ENGAGEMENT MANAGER Inhaled Oxygen Concentration - - Weight 82.5 kg (181 lb 14.4 oz) 10/28/2020 6:12 AM SALES ENGAGEMENT MANAGER Height 170.8 cm (5' 7.25) 10/28/2020 6:12 AM CS T Body Mass Index 28.28 10/28/2020 6:12 AM SALES ENGAGEMENT MANAGER Plan of Treatment Not on file Advance Directives For more information, please contact: [phone] Latest Code Status on File Code Status Date Activated Date Inactivated Comments Full Code 10/28/2020 12:00 PM 10/29/2020 4:40 PM All ba sic and advanced life-sustaining interventions are performed as appropriate Post-op Question Answer Comments Code status determined by: Other (please document) Care Teams Associate Professor Of Surgery Relationship Specialty Start Date End Date Sherin Munson MD [facility] [address] [place] [address] PCP - General Family Medicine 08/14/20
--- OUTSIDE RECORDS SUMMARY | 2023-09-28 03:11 | XMS_ITS | Clinical Summary ---
Author Name Unknown Organization [facility] Address [address] [place] [address] Care Team Providers Care Truck Cleaner Name Role Phone Sherin Munson MD Primary Care Provider +1- [phone] Allergies Active Allergy Reactions Criticality Noted Date [...] Overview: Added automatically from request for surgery [id number] Migraine Hypercalcemia Social History Tobacco Use Types Packs/Day Years Used Date Smoking Tobacco: Former Cigarettes 14 Q uit: 1999 Smokeless Tobacco: Never Tobacco Cessation:Counseling Given: Yes Adolescent Education Answer Date Record ed Getting School Help Needed Not on file 05/23 Sex and Gender Information Value Date Recorded Sex Assigned at Female 09/08/2020 3:28 PM TIMBER ESTIMATOR Gender Identity Female 09/08/2020 3:28 PM TIMBER ESTIMATOR Sexual Orientation Straight 09/08/2020 3: 28 PM TIMBER ESTIMATOR Last Filed Vital Signs Vital Sign Reading Time Taken Comments Blood Pressure 134/68 10/29/2020 2:13 PM TIMBER ESTIMATOR Pulse 81 10/29/2020 2:13 PM TIMBER ESTIMATOR Temperature 36.2 ??C (97.1 ??F) 10/29/2020 2:13 PM CS T Respiratory Rate 16 10/29/2020 2:13 PM TIMBER ESTIMATOR Oxygen Saturation 92% 10/29/2020 2:13 PM TIMBER ESTIMATOR Inhaled Oxygen Concentration - - Weight 82.5 kg (181 lb 14.4 oz) 10/28/2020 6:12 AM TIMBER ESTIMATOR Height 170.8 cm (5' 7.25) 10/28/2020 6:12 AM CS T Body Mass Index 28.28 10/28/2020 6:12 AM TIMBER ESTIMATOR Plan of Treatment Health Maintenance Due Date Last Done Comments ADVANCE CARE PLANNING 1966 ANNUAL REVIEW OF HM ORDERS 1966 CT COLONOGRAPHY 1966 FIT 1966 FLEX SIG 1966 HEPATITIS B IMMUNIZATION (1 of 3 - 3-dose series) 1966 MAMMO SCREENING 1966 YEARLY PREVENTIVE VISIT 1966 sDNA (Cologuard) 1966 COVID-19 Vaccine (#1) 1966 COLONOSCOPY 1976 COLORECTAL CANCER SCREENING 1976 HIV SCREENING 1981 HEPATITIS C SCREENING 1984 DTAP/TDAP/TD IMMUNIZATION (1 - Tdap) 1991 LIPID 2011 ZOSTER IMMUNIZATION (1 of 2) 2016 LUNG CANCER SCREENING 04/09/2021 04/09/2020 INFLUENZA VACCINE (#1) 2023 05/09/2020 PHQ-2 (once per calendar year) 2023 HPV TEST 06/04/2027 06/04/2022, 06/04/2022 PAP 06/04/2027 06/04/2022 HPV IMMUNIZATION Aged Out No longer e ligible based on patient's age to complete this topic IPV IMMUNIZATION Aged Out No longer e ligible based on patient's age to complete this topic MENINGITIS IMMUNIZATION Aged Out No l onger eligible based on patient's age to complete this topic Pneumococcal Vaccine: Pediatrics (0 to 5 Years) and At-Risk Patients (6 to 64 Years) Aged Out No longer eligible b ased on patient's age to complete this topic RSV MONOCLONAL ANTIBODY Aged Out No l onger eligible based on patient's age to complete this topic Advance Directives For more information, please contact: [phone] Latest Code Status on File Code Status Date Activated Date Inactivated Comments Full Code 10/28/2020 12:00 PM 10/29/2020 4:40 PM All ba sic and advanced life-sustaining interventions are performed as appropriate Post-op Question Answer Comments Code status determined by: Other (please document) Care Teams Truck Cleaner Relationship Specialty Start Date End Date Sherin Munson MD [facility] [address] [place] [address] PCP - General Family Medicine 08/14/20
== END 2023-09-23 12:28 | disposition home or self-care (01) ==
LOC: NFLDREF 09-28 03:08
PROVIDERS: Visit Provider Physician Assistant
DX: R39.15 Urgency of urination (principal); N39.0 Urinary tract infection, site not specified; N20.0 Calculus of kidney
CPT/HCPCS: 87086

== ENCOUNTER 2023-10-14 13:06 | Outpatient (CLI) | payer OTHER, SELFPAY ==
--- OUTSIDE RECORDS SUMMARY | 2023-10-14 13:11 | XMS_ITS | Clinical Summary ---
Author Name Unknown Organization [place] Address [address] [place] [address] Care Team Providers Care Glass Blowing Instructor Name Role Phone Sherin Munson MD Primary Care Provider +1- [phone] Allergies Active Allergy Reactions Criticality Noted Date [...] Overview: Added automatically from request for surgery [id number] Migraine Hypercalcemia Social History Tobacco Use Types Packs/Day Years Used Date Smoking Tobacco: Former Cigarettes 14 Q uit: 1999 Smokeless Tobacco: Never Tobacco Cessation:Counseling Given: Yes Adolescent Education Answer Date Record ed Getting School Help Needed Not on file 05/23 Sex and Gender Information Value Date Recorded Sex Assigned at Female 09/08/2020 3:28 PM MARKETING DIRECTOR Gender Identity Female 09/08/2020 3:28 PM MARKETING DIRECTOR Sexual Orientation Straight 09/08/2020 3: 28 PM MARKETING DIRECTOR Last Filed Vital Signs Vital Sign Reading Time Taken Comments Blood Pressure 134/68 10/29/2020 2:13 PM MARKETING DIRECTOR Pulse 81 10/29/2020 2:13 PM MARKETING DIRECTOR Temperature 36.2 ??C (97.1 ??F) 10/29/2020 2:13 PM CS T Respiratory Rate 16 10/29/2020 2:13 PM MARKETING DIRECTOR Oxygen Saturation 92% 10/29/2020 2:13 PM MARKETING DIRECTOR Inhaled Oxygen Concentration - - Weight 82.5 kg (181 lb 14.4 oz) 10/28/2020 6:12 AM MARKETING DIRECTOR Height 170.8 cm (5' 7.25) 10/28/2020 6:12 AM CS T Body Mass Index 28.28 10/28/2020 6:12 AM MARKETING DIRECTOR Plan of Treatment Health Maintenance Due Date [...] DTAP/TDAP/TD IMMUNIZATION (1 - Tdap) 1991 LIPID 2006 ZOSTER IMMUNIZATION (1 of 2) 2016 LUNG CANCER SCREENING 04/09/2021 04/09/2020 INFLUENZA VACCINE (#1) 2023 05/09/2020 PHQ-2 (once per calendar year) 2023 GLUCOSE 10/30/2023 10/29/2020 HPV TEST 06/04/2027 06/04/2022, 06/04/2022 PAP 06/04/2027 [...] Advance Directives For more information, please contact: [phone] Latest Code Status on File Code Status Date Activated Date Inactivated Comments Full Code 10/28/2020 12:00 PM 10/29/2020 4:40 PM All ba sic and advanced life-sustaining interventions are performed as appropriate Post-op Question Answer Comments Code status determined by: Other (please document) Care Teams Glass Blowing Instructor Relationship Specialty Start Date End Date Sherin Munson MD [facility] [address] [place] [address] PCP - General Family Medicine 08/14/20
--- OUTSIDE RECORDS SUMMARY | 2023-10-14 13:11 | XMS_ITS | Referral Summary ---
Author Name Unknown Organization [place] Address [address] [place] [address] Care Team Providers Care Biostatistics Director Name Role Phone Sherin Munson MD Primary Care Provider +1- [phone] Allergies Active Allergy Reactions Criticality Noted Date [...] Overview: Added automatically from request for surgery [id number] Migraine Hypercalcemia Social History Tobacco Use Types Packs/Day Years Used Date Smoking Tobacco: Former Cigarettes 14 Q uit: 1999 Smokeless Tobacco: Never Tobacco Cessation:Counseling Given: Yes Adolescent Education Answer Date Record ed Getting School Help Needed Not on file 05/23 Sex and Gender Information Value Date Recorded Sex Assigned at Female 09/08/2020 3:28 PM PUBLIC WORKS SUPERVISOR Gender Identity Female 09/08/2020 3:28 PM PUBLIC WORKS SUPERVISOR Sexual Orientation Straight 09/08/2020 3: 28 PM PUBLIC WORKS SUPERVISOR Last Filed Vital Signs Vital Sign Reading Time Taken Comments Blood Pressure 134/68 10/29/2020 2:13 PM PUBLIC WORKS SUPERVISOR Pulse 81 10/29/2020 2:13 PM PUBLIC WORKS SUPERVISOR Temperature 36.2 ??C (97.1 ??F) 10/29/2020 2:13 PM CS T Respiratory Rate 16 10/29/2020 2:13 PM PUBLIC WORKS SUPERVISOR Oxygen Saturation 92% 10/29/2020 2:13 PM PUBLIC WORKS SUPERVISOR Inhaled Oxygen Concentration - - Weight 82.5 kg (181 lb 14.4 oz) 10/28/2020 6:12 AM PUBLIC WORKS SUPERVISOR Height 170.8 cm (5' 7.25) 10/28/2020 6:12 AM CS T Body Mass Index 28.28 10/28/2020 6:12 AM PUBLIC WORKS SUPERVISOR Plan of Treatment Not on file Advance Directives For more information, please contact: [phone] Latest Code Status on File Code Status Date Activated Date Inactivated Comments Full Code 10/28/2020 12:00 PM 10/29/2020 4:40 PM All ba sic and advanced life-sustaining interventions are performed as appropriate Post-op Question Answer Comments Code status determined by: Other (please document) Care Teams Biostatistics Director Relationship Specialty Start Date End Date Sherin Munson MD [facility] [address] [place] [address] PCP - General Family Medicine 08/14/20
== END 2023-10-14 13:07 | disposition home or self-care (01) ==
PROVIDERS: PCP Emergency Medicine; Visit Provider Emergency Medicine
DX: Z13.220 Encounter for screening for lipoid disorders (principal); E21.0 Primary hyperparathyroidism
CPT/HCPCS: 80048; 80061

== ENCOUNTER 2023-11-18 10:20 | Outpatient (CLI) | payer OTHER, SELFPAY | END 2023-11-18 10:21 | disposition home or self-care (01) | LOC: LKVREF 10:21 | PROVIDERS: PCP Emergency Medicine; Visit Provider Emergency Medicine | DX: E66.9 Obesity, unspecified (principal); E21.0 Primary hyperparathyroidism; I10 Essential (primary) hypertension; E78.5 Hyperlipidemia, unspecified; Z68.31 Body mass index [BMI] 31.0-31.9, adult | CPT/HCPCS: 80076; 84439; 84443 ==

== ENCOUNTER 2024-01-21 09:37 | Outpatient (CLI) | payer OTHER, SELFPAY ==
--- OUTSIDE RECORDS SUMMARY | 2024-01-21 09:39 | XMS_ITS | Clinical Summary ---
Author Organization [place] Address [address] [place] [address] Care Team Providers Care Portable Grinding Machine Operator Name Role Phone Sherin Munson MD Primary Care Provider +1- [phone] Allergies Active Allergy Reactions Criticality Noted Date Comments Penicillins Hives 10/13/2019 Mom told her she had as a child Medications Medication Sig Dispensed Refills Start Date End Date Status cholecalciferol (VITAMIN D3) 125 mcg (5000 units) capsule Take 125 mcg by mouth daily Active prochlorperazine (COMPAZINE) 10 MG tabletIndications:Primary hyperparathyroidism (H24) Take 1 tablet (10 mg) by mouth every 6 hours as needed for nausea or vomiting 20 tablet 10/29/2020 Active calcium carbonate (OS-DENISE) 500 MG tabletIndications:Primary hyperparathyroidism (H24) Take 1 tablet (500 mg) by mouth 2 times daily 60 tablet 10/29/2020 Active Active Problems Problem Noted Date Diagnosed Date Primary hyperparathyroidism (H24) 09/22/2020 Overview: Added automatically from request for surgery [id number] Migraine Hypercalcemia Social History Tobacco Use Types Packs/Day Years Used Date Smoking Tobacco: Former Cigarettes 1 986 - 1999 Smokeless Tobacco: Never Tobacco Cessation:Counseling Given: Yes Adolescent Education Answer Date Record ed Getting School Help Needed Not on file 05/23 Sex and Gender Information Value Date Recorded Sex Assigned at Female 09/08/2020 3:28 PM DIRECTOR OF KNOWLEDGE MANAGEMENT Gender Identity Female 09/08/2020 3:28 PM DIRECTOR OF KNOWLEDGE MANAGEMENT Sexual Orientation Straight 09/08/2020 3: 28 PM DIRECTOR OF KNOWLEDGE MANAGEMENT Last Filed Vital Signs Vital Sign Reading Time Taken Comments Blood Pressure 134/68 10/29/2020 2:13 PM DIRECTOR OF KNOWLEDGE MANAGEMENT Pulse 81 10/29/2020 2:13 PM DIRECTOR OF KNOWLEDGE MANAGEMENT Temperature 36.2 ??C (97.1 ??F) 10/29/2020 2:13 PM CS T Respiratory Rate 16 10/29/2020 2:13 PM DIRECTOR OF KNOWLEDGE MANAGEMENT Oxygen Saturation 92% 10/29/2020 2:13 PM DIRECTOR OF KNOWLEDGE MANAGEMENT Inhaled Oxygen Concentration - - Weight 82.5 kg (181 lb 14.4 oz) 10/28/2020 6:12 AM DIRECTOR OF KNOWLEDGE MANAGEMENT Height 170.8 cm (5' 7.25) 10/28/2020 6:12 AM CS T Body Mass Index 28.28 10/28/2020 6:12 AM DIRECTOR OF KNOWLEDGE MANAGEMENT Plan of Treatment Not on file Advance Directives For more information, please contact: [phone] * Full Code (Latest Code Status on File) Date Activated Date Inactivated Comments 10/28/2020 12:00 PM 10/29/2020 4:40 PM All basic and advanced life-sustaining interventions are performed as appropriate Post-op Question Answer Comments Code status determined by: Other (please lizzie t) Care Teams Portable Grinding Machine Operator Relationship Specialty Start Date End Date Sherin Munson MD [facility] [address] [place] [address] PCP - General Family Medicine 08/14/20
--- OUTSIDE RECORDS SUMMARY | 2024-01-21 09:39 | XMS_ITS | Referral Summary ---
Author Organization [place] Address [address] [place] [address] Care Team Providers Care Metal Framer Name Role Phone Sherin Munson MD Primary Care Provider +1- [phone] Allergies Active Allergy Reactions Criticality Noted Date [...] Overview: Added automatically from request for surgery [id number] Migraine Hypercalcemia Social History Tobacco Use Types Packs/Day Years Used Date Smoking Tobacco: Former Cigarettes 1 986 - 1999 Smokeless Tobacco: Never Tobacco Cessation:Counseling Given: Yes Adolescent Education Answer Date Record ed Getting School Help Needed Not on file 05/23 Sex and Gender Information Value Date Recorded Sex Assigned at Female 09/08/2020 3:28 PM SPORTS MARKETING INTERNSHIP Gender Identity Female 09/08/2020 3:28 PM SPORTS MARKETING [employer]NS[employer] Sexual Orientation Straight 09/08/2020 3: 28 PM SPORTS MARKETING INTERNS[employer]IP Last Filed Vital Signs Vital Sign Reading Time Taken Comments Blood Pressure 134/68 10/29/2020 2:13 PM SPORTS MARKETING INTERNS[employer]IP Pulse 81 10/29/2020 2:13 PM SPORTS MARKETING [employer] Temperature 36.2 ??C (97.1 ??F) 10/29/2020 2:13 PM CS T Respiratory Rate 16 10/29/2020 2:13 PM SP[employer]TS MARKETING [employer]NS[employer] Oxygen Saturation 92% 10/29/2020 2:13 PM SPORTS MARKETING INTERNS[employer]IP Inhaled Oxygen Concentration - - Weight 82.5 kg (181 lb 14.4 oz) 10/28/2020 6:12 AM SPORTS MARKETING INTERNSHIP Height 170.8 cm (5' 7.25) 10/28/2020 6:12 AM CS T Body Mass Index 28.28 10/28/2020 6:12 AM SPORTS MARKETING INTERNSHIP Plan of Treatment Not on file Advance Directives For more information, please contact: [phone] * Full Code (Latest Code Status on File) Date Activated Date Inactivated Comments 10/28/2020 12:00 PM 10/29/2020 4:40 PM All basic and advanced life-sustaining interventions are performed as appropriate Post-op Question Answer Comments Code status determined by: Other (please lizzie t) Care Teams Metal Framer Relationship Specialty Start Date End Date Sherin Munson MD [facility] [address] [place] [address] PCP - General Family Medicine 08/14/20
== END 2024-01-21 09:38 | disposition home or self-care (01) ==
PROVIDERS: PCP Emergency Medicine; Visit Provider Family Medicine
DX: R94.6 Abnormal results of thyroid function studies (principal); E78.2 Mixed hyperlipidemia
CPT/HCPCS: 80061; 84439; 84443